=== PATIENT | female | born 1990 | race Caucasian/White ===

== ENCOUNTER 2025-02-25 13:36 | Inpatient (IN) | payer SELFPAY ==
--- NOTE | 2025-02-25 13:47 | ED.C_ITS ---
HPI - Psych 2 General: Chief Complaint: Psychiatric Symptoms Stated Complaint: sent from [facility] Time Seen by Provider: 02/25/25 13:46 History of Present Illness: 34-year-old female with a history of dep ression who is no longer on antidepressant medications who presents the emergency room from behavioral health clinic with complaints of suicidal thoughts. She says she feels like she is about to have a mental breakdown. She said she was on her way to work and had a dissociation episode and started crying and felt suicidal. She said she had a suicidal attempt when she was 18 years old. She says she stopped taking depression meds 3 years ago because they made her anxiety worse. No specific plan today. Related Data Home Medications ?Medication ?Instructions ?Recorded ?Confirmed ibuprofen 200 mg tablet (Advil) 800 mg PO Q6H PRN Feve r Or Pain 02/25/25 02/25/25 Allergies Allergy/AdvReac Type Severity Reaction Status Date / Time No Known Allergies Allergy Verified 02/25/25 13:56 Review of Systems 2 Narrative: Constitutional symptoms: Negative except as documented in HPI. Skin symptoms: Negative except as documented in HPI. Eye symptoms: Negative except as documented in HPI. ENMT symptoms: Negative except as documented in HPI. Respiratory symptoms: Negative except as documented in HPI. Cardiovascular symptoms: Negative except as documented in HPI. Gastrointestinal symptoms: Negative except as documented in HPI. Genitourinary symptoms: Negative except as documented in HPI. Musculoskeletal symptoms: Negative except as documented in HPI. Neurologic symptoms: Negative except as documented in HPI. Psychiatric symptoms: Negative except as documented in HPI. Endocrine symptoms: Negative except as documented in HPI. Physical Exam 2 Narrative: EXAM NARRATIVE: General: Alert, no acute distress. Skin: Warm, dry. Head: Normocephalic, atraumatic. Neck: Supple, trachea midline. Eye: Extraocular movements are intact. Ears, nose, mouth and throat: mucosa moist. Cardiovascular: Regular, Normal peripheral perfusion. Respiratory: Lungs are clear to auscultation, respirations are non-labored, breath sounds are equal, Symmetrical chest wall expansion. Gastrointestinal: Soft, Nontender, Non distended Musculoskeletal: Normal ROM, no deformity. Neurological: Alert and oriented, No focal neurological deficit observed. Psychiatric: Cooperative, depressed affect, endorses suicidal thoughts. Course 2 Vital Signs: Vital signs: Vital Signs Pulse Rate 70 02/25/25 13:51 Respiratory Rate 18 02/25/25 13:51 Blood Pressure 109/75 02/25/25 13:51 Pulse Oximetry 98 02/25/25 13:51 Oxygen Delivery Me thod Room Air 02/25/25 13:51 MDM - Psych Medical Decision Making Differential diagnosis: Patient with reported depression and suicidal ideation. concerns for infection, alcohol intoxication, cardiac issues or other medical problems prior to psychiatric admission. Workup: labwork, ekg ordered to evaluate the pathologies and to clear the patient medically prior to psychiatric admission Lab Review: Laboratory results were reviewed and interpreted by myself the emergency room physician. - Medically cleared. - EKG shows no ischemic changes. - Blood alcohol level is negative, -urinalysis and drug screen pending at admission - No signs of infection, urinalysis clear and white count is not elevated - No anemia. - BUN and creatinine are within normal limits. Consultation: I spoke with Dr. Garvin who is on-call for the psychiatry service and agrees to admission. Assessment and plan: Suicidal thoughts Depression -Admission to neuropsychiatric unit for continued evaluation and treatment. - All lab work was reviewed and interpreted personally by myself, the ER physician - Evaluation and treatment of this problem were appropriate in the emergency setting Lab Data 02/25/25 13:58 02/25/25 13:58 Laboratory Results WBC 12.89 10^3/uL (3.29-11.43) H 02/25/25 13:58 RBC 4.19 10^6/uL (3.85-5.65) 02/25/25 13:58 Hgb 12.90 g/dL (11.27-16.99) 02/25/25 13:58 Hct 39.0 % (36-47) 02/25/25 13:58 MCV 93.1 fl (85-98) 02/25/25 13:58 MCH 30.8 pg (27-33) 02/25/25 13:58 MCHC 33.1 g/dL (30-55) 02/25/25 13:58 RDW 12.9 % (12.1-15.1) 02/25/25 13:58 Plt Count 355 10^3/cmm (157-399) 02/25/25 13:58 MPV 10.1 fL (7.4-10.4) 02/25/25 13:58 Neut % (Auto) 62.1 % 02/25/25 13:58 Lymph % (Auto) 30.3 % 02/25/25 13:58 Dyer % (Auto) 4.0 % 02/25/25 13:58 Eos % (Auto) 2.8 % 02/25/25 13:58 Baso % (Auto) 0.6 % 02/25/25 13:58 Neut # (Auto) 7.99 10^3/uL (1.8-7.7) H 02/25/25 13:58 Lymph # (Auto) 3.9 10^3/uL (0.8-4.8) 02/25/25 13:58 Dyer # (Auto) 0.5 10^3/uL (0.2-0.9) 02/25/25 13:58 Eos # (Auto) 0.4 10^3/uL (0.0-0.8) 02/25/25 13:58 Baso # (Auto) 0.1 10^3/uL (0.0-0.1) 02/25/25 13:58 Nucleated RBC % (auto) 0 % 02/25/25 13:58 Nucleated RBCs # 0.0 /100WBC 02/25/25 13:58 Sodium 139 mmol/L (136-145) 02/25/25 13:58 Potassium 3.9 mmol/L (3.5-5.1) 02/25/25 13:58 Chloride 104 mmol/L (98-107) 02/25/25 13:58 Carbon Dioxide 22 mmol/L (22-29) 02/25/25 13:58 Anion Gap 16.9 (5-19) 02/25/25 13:58 BUN 7 mg/dL (6-20) 02/25/25 13:58 Creatinine 0.6 mg/dL (0.5-0.9) 02/25/25 13:58 GFR Calculation 115.9 mL/min (90-130) 02/25/25 13:58 Glucose 97 mg/dL (65-115) 02/25/25 13:58 Calculated Osmolality 286 mOsm/kg (285-295) 02/25/25 13:58 Calcium 9.0 mg/dL (8.5-10.5) 02/25/25 13:58 Total Bilirubin 0.2 mg/dL (0.15-1.2) 02/25/25 13:58 AST 10 U/L (0-32) 02/25/25 13:58 ALT 9 U/L (0-33) 02/25/25 13:58 Alkaline Phosphatase 83 U/L (35-105) 02/25/25 13:58 Total Protein 7.1 g/dL (6.6-8.7) 02/25/25 13:58 Albumin 4.3 g/dL (3.5-5.2) 02/25/25 13:58 Globulin 2.8 g/dL (1.3-4.6) 02/25/25 13:58 TSH 1.67 uIU/mL (0.27-4.20) 02/25/25 13:58 HCG, Qual Negative (Negative) 02/25/25 13:58 Salicylates < 0.3 mg/dL (3-10) L 02/25/25 13:58 Acetaminophen < 5.0 ug/mL (10-30) L 02/25/25 13:58 Ethyl Alcohol < 10 mg/dL (0-10) 02/25/25 13:58 No radiology studies performed this visit Discharge Plan Discharge Patient Disposition: Admitted As Inpatient Admit Provider: Martin Garvin Clinical Impression: Suicidal ideation, Depression Condition: Stable Coding Level of Care Code ED Napping Machine Operator for Jada Treadwell
[2025-02-25 13:51] VITALS: BP 109/75; PULSE 70; RESP 18; O2SAT 98
[2025-02-25 14:05] LABS: Hematocrit 39.0 % (36-47); Hemoglobin 12.90 g/dL (11.27-16.99); Mean Corpuscular HGB Conc 33.1 g/dL (30-55); Mean Corpuscular Hemoglobin 30.8 pg (27-33); Mean Corpuscular Volume 93.1 fl (85-98); Nucleated Red Blood Cells % 0 %; Platelet Count 355 10^3/cmm (157-399); Red Blood Count 4.19 10^6/uL (3.85-5.65); White Blood Count 12.89 10^3/uL (3.29-11.43)
[2025-02-25 14:14] LABS: HCG Qualitative Urine. Negative (Negative)
--- NOTE | 2025-02-25 14:15 | PC.NURSE ---
Involuntary 96 hour hold rights read and reviewed with patient. Patient verbalized understandings and copy of rights given to patient.
[2025-02-25 14:32] LABS: Alanine Aminotransferase 9 U/L (0-33); Albumin Level 4.3 g/dL (3.5-5.2); Alkaline Phosphatase 83 U/L (35-105); Anion Gap 16.9 (5-19); Aspartate Amino Transferase 10 U/L (0-32); Blood Urea Nitrogen 7 mg/dL (6-20); Calcium 9.0 mg/dL (8.5-10.5); Carbon Dioxide 22 mmol/L (22-29); Chloride 104 mmol/L (98-107); Globulin 2.8 g/dL (1.3-4.6); Glucose 97 mg/dL (65-115); Osmolality Calculated 286 mOsm/kg (285-295); Potassium 3.9 mmol/L (3.5-5.1); Sodium 139 mmol/L (136-145); Thyroid Stimulating Hormone 1.67 uIU/mL (0.27-4.20); Total Protein 7.1 g/dL (6.6-8.7)
[2025-02-25 14:34] LABS: Acetaminophen < 5.0 ug/mL (10-30); Alcohol Level < 10 mg/dL (0-10); Salicylate < 0.3 mg/dL (3-10)
[2025-02-25 15:49] VITALS: BP 112/78; PULSE 67; RESP 16; TEMP 36.9; O2SAT 98
--- NOTE | 2025-02-25 16:34 | PC.NURSE ---
Pt. came into ER was placed on a 96 hr hold. Told ER that she had a mental breakdown while driving on the way to work. Pt. states she has nightmares about killing herself, says she would not hurt herself, but if a car was heading her way she would not get out of the way. Pt. says she attempted suicide at age 17 by trying to drink herself to . Pt. has multiple cyst one under her right armpit, several on her left buttock and lower left thigh, right buttock. Pt. 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 Pt. is and has 3 kids. The kids are with her . One child she had at age 18. Pt. says she has only lived her in [place] for 2 years.
[2025-02-25 16:41] LABS: Glucose Urine UA Negative (Normal); Nitrate Urine Negative (Negative); Specific Gravity, Urine 1.009 (1.005-1.030)
[2025-02-25 16:55] LABS: PCP Screen Urine Negative (Negative)
[2025-02-25 17:47] LABS: Add Urine Microscopic? YES
[2025-02-25 19:52] VITALS: BP 103/50; PULSE 61; RESP 16; TEMP 36.8; O2SAT 99
[2025-02-26 06:00] VITALS: BP 94/61; PULSE 81; RESP 16; TEMP 36.9; O2SAT 96
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
[2025-02-26 14:00] VITALS: BP 101/48; PULSE 78; RESP 16; TEMP 37.2; O2SAT 99
--- NOTE | 2025-02-26 16:42 | PC.NURSE ---
This nurse and EXECUTIVE VICE PRESIDENT [employer]ELOPMENT covered open MRSA sores with bandaids. Cleaned the areas and dried well then bandaged.
[2025-02-26 20:36] VITALS: BP 100/53; PULSE 58; RESP 18; TEMP 36.7; O2SAT 99
[2025-02-27 06:00] VITALS: BP 93/58; PULSE 63; RESP 16; TEMP 36.7; O2SAT 97
--- NOTE | 2025-02-27 11:27 | PC.NURSE ---
I was contacted by Manuel Arias RN with concerns, stating that when Dr. Bruno rounded on patient, he was suspicious of her wounds containing MRSA and ordered antibiotics. I called and spoke with him and explained that with our community setting in [place], if patient is infectious, she will need to be transferred to a medical floor. He verbalizes understanding and provided a verbal order for wound culture and gram stain, which I placed per policy. I informed Karo of this and we will attempt to contain patient as best as possible until the initial results are reported. Dr. Garvin was made aware as well.
[2025-02-27 13:21] VITALS: BP 104/68; PULSE 65; RESP 16; TEMP 36.9; O2SAT 99
--- NOTE | 2025-02-27 13:45 | PM.CONSULT ---
Providers/Reason For Consult Consulting Physician/Specialty*: Justin Bruno MD hospitalist Reason for Consult*: Recurrent skin boils history of MRSA Requesting Physician: Martin Garvin MD Attending Physician: Martin Garvin MD History of Present Illness History of Present Illness Leigh Rios is a 34 year old female has had recurrent skin boils since age 10-11 and was told she is a MRSA carrier. She has had specialist told her to use bleach baths but she states she is allergic to bleach so cannot do that. She has been on 6-month antibiotics in the past including doxycycline and potentially others but cannot recall them. Patient is admitted to the Neuropsych Unit for severe depression and feeling like she does not need to live anymore. She has not had an active suicidal plan. She states she is being helped here on the admission. 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 And is not involved in sports Patient smokes a cigarette a week. She does vape 1 canister a week she does not use alcohol or any other drugs. Review of Systems Narrative: General No fevers chills she reports multiple skin lesions that have healed and drained she currently has them in the right axilla around the buttocks and also at the upper butt crack Medications/Allergies Home Medications ?Medication ?Instructions ?Recorded ?Confirmed ?Last Taken ?Type ibuprofen 200 mg tablet (Advil) 800 mg PO Q6H PRN Fever Or Pain 02/25/25 02/25/25 02/21/25 History Allergies Allergy/AdvReac Type Severity Reaction Status Date / Time No Known Allergies Allergy Verified 02/25/25 13:56 Current Medications Generic Name Dose Route Start Last Admin Trade Name Freq PRN Reason Stop Dose Admin Acetaminophen 650 mg 02/25/25 15:48 02/26/25 10:04 Acetaminophen 325 Mg Tablet PO 650 mg Q4H PRN Administration MILD PAIN Fluoxetine HCl 20 mg 02/26/25 17:55 02/27/25 08:04 Fluoxetine 20 Mg Capsule PO 20 mg DAILY CHIN Administration Ibuprofen 600 mg 02/25/25 15:48 02/26/25 20:34 Ibuprofen 600 Mg Tablet PO 600 mg Q6H PRN Administration MODERATE PAIN Nicotine Polacrilex 2 mg 02/25/25 15:48 02/27/25 11:20 Nicotine 2 Mg Gum BUCCAL 2 mg Q2H PRN Administration NICOTINE WITHDRAWAL PFSH Acute PFSH: Medical History (Updated 02/27/25 @ 14:06 by Justin Bruno MD) Furuncle of buttock MRSA carrier Vitals/I&O/Wt Last Vital Signs Temp 98.5 F 02/27/25 13:21 Pulse 65 02/27/25 13:21 Resp 16 02/27/25 13:21 BP 104/68 02/27/25 13:21 Pulse Ox 99 02/27/25 13:21 O2 Del Method Room Air 02/27/25 13:21 Weight last 48 hrs Weight 89.811 kg Physical Exam Narrative: Patient was examined with the staff member Emiliana present CV regular rate and rhythm Lungs clear Right axilla there is a 2-1/2 cm erythematous indurated deep furuncle mildly to moderately tender not draining Right and left inner buttock with some boils 1 of those is draining. She has a lesion at the right upper butt crack. Additionally there is scarring from multiple healed lesions Data 02/25/25 13:58 02/25/25 13:58 A&P Assessment and plan 1. Furuncle of buttock: Continue with wound care we will put the patient on Bactrim DS 1 p.o. twice daily for 14 days renal function is normal with creatinine 0.6 Obtain wound culture 2. MRSA carrier: Obtain MRSA nasal swab. 3. Furuncle of axilla: PDMP PDMP Reviewed: Not Reviewed Coding Level of Care Code 64563 Diagnoses Furuncle of buttock L02.32 MRSA carrier Z22.322 Furuncle of axilla L02.429 Time Spent (min) 45
[2025-02-27] MEDS: sulfamethoxazole-trimeth DS 160-800 mg Tablet 1 TAB PO (17:22)
--- NOTE | 2025-02-27 17:39 | P.NPUPN_ITS ---
Subjective NPU 2 Subjective: Patient presents today reporting that things are going okay. She appreciates the fact that her medical comorbidities are being addressed. We discussed a plan to transfer her to the [facility] after discussion of the risks, benefits and alternatives she understood and agreed to proceed as is documented in this note. We discussed the fact that we would likely not have her return if she continues to show improvement from a psychiatric standpoint and her plan for weaning will be based on the need to treat these infections and/or boils. She denied any side effects to the new medication. Mental Status Exam 2 MSE Comments: This is an overweight white female in hospital scrubs with adequate grooming and limited eye contact. Multiple tattoos on her exposed skin of her forearms. No abnormal movements except for mild psychomotor retardation. Cooperative with exam and mild to moderate distress. Speech was slightly decreased rate and volume. Mood described as depressed and anxious, affect congruent. Thought process organized. Thought content: Patient denied active suicidal or homicidal ideation, there were no delusions reported or noted, she denied any auditory or visual hallucinations. Reports severe anxiety characterized by constant worrying and social anxiety that began in high school. Describes feeling depressed and overwhelmed, with a history of depression since childhood. Experiences difficulty achieving deep sleep, waking up after about 5 hours and staying awake for several hours. Describes a mix of overeating and undereating during depressive episodes. Reports having trouble remembering things and disassociation at times. Current mood is described as tired. Denies current suicidal thoughts, thoughts of hurting or killing others, visual hallucinations, and delusions. Attention and concentration are intact and memory was mostly reliable but no more formally tested. She is alert and oriented x 3. Insight insight is fair, judgment is limited and impulse control is poor. Vitals/I&O/Wt Last Vital Signs Temp 98.5 F 02/27/25 13:21 Pulse 65 02/27/25 13:21 Resp 16 02/27/25 13:21 BP 104/68 02/27/25 13:21 Pulse Ox 99 02/27/25 13:21 O2 Del Method Room Air 02/27/25 13:21 Data NPU 02/25/25 13:58 02/25/25 13:58 A&P Assessment and plan 1. Suicidal ideation: 2. Major depressive disorder, recurrent: 3. PEDRO (generalized anxiety disorder): 4. PTSD (post-traumatic stress disorder): Plan: This is a 34-year-old white female with a long history of mental health issues with limited history of treatment though she has had some treatment in her childhood and some limited treatment 2 to 3 years ago but prior to moving to this area. She presented after having what she describes as a breakdown at her place of employment and they recommended she come here to be evaluated. UDS negative and blood alcohol unremarkable. She is unknown to psychiatric services at [facility] except for a crisis contact. Depression and severe anxiety, as previously diagnosed and discussed. History of panic attacks, with noted exacerbation by Lexapro. Social anxiety, with significant distress in large group settings. Chronic fear of abandonment, with interpersonal difficulties suggestive of possible borderline personality disorder, to be further evaluated. ADHD considered as a differential diagnosis, pending further assessment. Plan Initiated treatment with Prozac, to be administered starting immediately and continued in the morning as per standard protocol. Recommended ongoing assessment and discussion regarding possible bipolar disorder, borderline personality disorder, and ADHD, with further evaluation planned for the next session. 1. Initiated Prozac 20 mg p.o. daily. Will consider something for anxiety specifically if necessary. 2. Encourage individual, group and milieu therapy. 3. Continue every 15 minute checks for safety. 4. Obtain collateral information. 5. Observe against the backdrop of the 96-hour hold. 6. Obtain hospitalist consult with concern for the boils/lesions that she routinely gets with some of them appearing possibly inflamed or infected. Concern for MRSA exists and we will transfer her to the [facility] unit with a plan to have her treated safely at their and continuing her medications and treatment from now here with the likelihood discharge sooner rather than later. PDMP PDMP Reviewed: Not Reviewed Involuntary Hold Information 2 Hold Status: Legal Status: 96 Hour Hold Date/Time Hold Expires: 1 @1400 Attestations NPU 2 Medical Necessity Statement*: Inpatient hospitalization is medically necessary and the clinically appropriate intervention at this time. We will monitor/initiate medications and make changes as indicated. Likely length of stay 2-4 days. Coding Level of Care Code Acute Code for Chg Fwd Diagnoses Suicidal ideation R45.851 Major depressive disorder, recurrent F33.9 PEDRO (generalized anxiety disorder) F41.1 PTSD (post-traumatic stress disorder) F43.10
[2025-02-27 18:31] LABS: MRSA PCR OZH (swab) MRSA Detected (Not Detecte)
[2025-02-27 19:33] VITALS: BP 98/66; PULSE 63; RESP 18; TEMP 37.5; O2SAT 99
[2025-02-28] VITALS: BP 90/54; PULSE 57; RESP 15; TEMP 36.7; O2SAT 96
[2025-02-28 04:00] VITALS: BP 100/65; PULSE 60; RESP 15; TEMP 36.8; O2SAT 92
[2025-02-28] MEDS: sulfamethoxazole-trimeth DS 160-800 mg Tablet 1 TAB PO ×2 (05:39→17:52)
[2025-02-28 07:27] VITALS: BP 90/55; PULSE 46; RESP 16; TEMP 36.7; O2SAT 98
[2025-02-28 10:59] VITALS: BP 90/60; PULSE 73; RESP 18; TEMP 36.7; O2SAT 98
[2025-02-28] MEDS: mupirocin oint 22 gm 1 APPLIC NOSTRIL-B ×2 (11:33→18:07)
--- NOTE | 2025-02-28 15:13 | P.PN_ITS ---
Subjective 2 Subjective: 34-year-old female with MRSA b oils with MRSA positive on the nares swab and put in isolation from [facility] Unit transferred to med floor yesterday wound grew only mixed ronald. Patient reports willingness to comply with decolonization for MRSA. Vitals/I&O/Wt Last Vital Signs Temp 98.0 F 02/28/25 10:59 Pulse 73 02/28/25 10:59 Resp 18 02/28/25 10:59 BP 90/60 02/28/25 10:59 Pulse Ox 98 02/28/25 10:59 O2 Del Method Room Air 02/28/25 10:59 02/28/25 02/28/25 02/28/25 06:59 14:59 22:59 Intake Total 960 / 960 Balance 960 / 960 Weight last 48 hrs Weight 81.363 kg Physical Exam 2 Narrative: Patient was examined with the [employer]LE[employer]MINISTRATOR CV regular rate and rhythm Lungs clear Right axilla there is a 2- cm erythematous indurated deep furuncle mildly to moderately tender not draining Buttock not examined Data 02/25/25 13:58 02/25/25 13:58 Micro: Microbiology 02/27/25 12:17 Gram Stain - Final Buttock Wound Culture - Preliminary A&P Assessment and plan 1. Furuncle of buttock: Continue with wound care we will put the patient on Bactrim DS 1 p.o. twice daily for 14 days renal function is normal with creatinine 0.6 Nasal MRSA screen positive but wound grew mixed ronald. Continue Bactrim as planned. Will start decolonization 2. MRSA carrier: Decolonization with chlorhexidine 15 cc swish and spit twice a day mupirocin to the nares twice a day and chlorhexidine wash once a day for 5 days a month 3. Furuncle of axilla: Minimally improved beader tender PDMP PDMP Reviewed: Not Reviewed Attestations 2 Medical Necessity Statement*: Patient neil hospitalized for psychiatric illness. I am going to write for Bactrim and decolonization regimen to be continued outpatient with anticipated discharge tomorrow or the next day per psychiatric service Coding Level of Care Code 71318 Diagnoses Furuncle of buttock L02.32 MRSA carrier Z22.322 Furuncle of axilla L02.429 Time Spent (min) 35
--- NOTE | 2025-02-28 15:14 | W.PM.NPUPNS ---
Subjective NPU Subjective: Patient presented today reporting that she is doing okay. She reports she is feeling better with the medication and is sleeping better with the trazodone. She was hopeful that she could get the trazodone as well to assist with her sleep after discharge. She is working with the primary medical team on this process of dealing with the MRSA and determining whether she should have a shorter or longer treatment course. She reports that they are going to do the 14-day treatment course at this time. We discussed that I would discuss the case with Dr. Bruno to determine if he is prepared and comfortable with her discharging on the oral antibiotics. She reports that she is considering not returning to work at the [employer] but we discussed giving her some time to manage her MRSA treatment and have some mental health time and then she will make a decision about if she returns there. She denied any side effects to the medication. Mental Status Exam MSE Comments: This is an overweight white female in hospital scrubs with adequate grooming and limited eye contact. Multiple tattoos on her exposed skin of her forearms. No abnormal movements except for mild psychomotor retardation. Cooperative with exam and mild to moderate distress. Speech was slightly decreased rate and volume. Mood described as depressed and anxious, affect congruent. Thought process organized. Thought content: Patient denied active suicidal or homicidal ideation, there were no delusions reported or noted, she denied any auditory or visual hallucinations. Reports severe anxiety characterized by constant worrying and social anxiety that began in high school. Describes feeling depressed and overwhelmed, with a history of depression since childhood. Experiences difficulty achieving deep sleep, waking up after about 5 hours and staying awake for several hours. Describes a mix of overeating and undereating during depressive episodes. Reports having trouble remembering things and disassociation at times. Current mood is described as tired. Denies current suicidal thoughts, thoughts of hurting or killing others, visual hallucinations, and delusions. Attention and concentration are intact and memory was mostly reliable but no more formally tested. She is alert and oriented x 3. Insight insight is fair, judgment is limited and impulse control is poor. Vitals/I&O/Wt Last Vital Signs Temp 98.0 F 02/28/25 10:59 Pulse 73 02/28/25 10:59 Resp 18 02/28/25 10:59 BP 90/60 02/28/25 10:59 Pulse Ox 98 02/28/25 10:59 O2 Del Method Room Air 02/28/25 10:59 02/28/25 02/28/25 02/28/25 06:59 14:59 22:59 Intake Total 960 / 960 Balance 960 / 960 Weight last 48 hrs Weight 81.363 kg Data NPU 02/25/25 13:58 02/25/25 13:58 Micro: Microbiology 02/27/25 12:17 Gram Stain - Final Buttock Wound Culture - Preliminary Microbiology 02/27/25 12:17 Buttock Gram Stain - Final 02/27/25 12:17 Buttock Wound Culture - Preliminary A&P Assessment and plan 1. Suicidal ideation: 2. Major depressive disorder, recurrent: 3. PEDRO (generalized anxiety disorder): 4. PTSD (post-traumatic stress disorder): Plan: This is a 34-year-old white female with a long history of mental health issues with limited history of treatment though she has had some treatment in her childhood and some limited treatment 2 to 3 years ago but prior to moving to this area. She presented after having what she describes as a breakdown at her place of employment and they recommended she come here to be evaluated. UDS negative and blood alcohol unremarkable. She is unknown to psychiatric services at [facility] except for a crisis contact. Depression and severe anxiety, as previously diagnosed and discussed. History of panic attacks, with noted exacerbation by Lexapro. Social anxiety, with significant distress in large group settings. Chronic fear of abandonment, with interpersonal difficulties suggestive of possible borderline personality disorder, to be further evaluated. ADHD considered as a differential diagnosis, pending further assessment. Plan Initiated treatment with Prozac, to be administered starting immediately and continued in the morning as per standard protocol. Recommended ongoing assessment and discussion regarding possible bipolar disorder, borderline personality disorder, and ADHD, with further evaluation planned for the next session. 1. Initiated Prozac 20 mg p.o. daily. Will consider something for anxiety specifically if necessary. 2. Encourage individual, group and milieu therapy. 3. Continue every 15 minute checks for safety. 4. Obtain collateral information. 5. Observe against the backdrop of the 96-hour hold. 6. Obtain hospitalist consult with concern for the boils/lesions that she routinely gets with some of them appearing possibly inflamed or infected. Concern for MRSA exists and we will transfer her to the [facility] unit with a plan to have her treated safely at their and continuing her medications and treatment from now here with the likelihood discharge sooner rather than later. PDMP PDMP Reviewed: Not Reviewed Involuntary Hold Information Hold Status: Legal Status: 96 Hour Hold Date/Time Hold Expires: 03/01/25@1400 Attestations NPU Medical Necessity Statement*: Inpatient hospitalization is medically necessary and the clinically appropriate intervention at this time. We will monitor/initiate medications and make changes as indicated. Likely length of stay 2-4 days. Coding Level of Care Code Acute Code for Chg Fwd Diagnoses Suicidal ideation R45.851 Major depressive disorder, recurrent F33.9 PEDRO (generalized anxiety disorder) F41.1 PTSD (post-traumatic stress disorder) F43.10
[2025-02-28 15:15] VITALS: BP 96/54; PULSE 59; RESP 16; TEMP 37; O2SAT 96
[2025-02-28] MEDS: chlorhexidine gluconate 0.12% Btl 473 mL 15 ML MUCOUS MEM (17:52)
[2025-02-28 20:00] VITALS: BP 99/59; PULSE 63; RESP 179; TEMP 36.8; O2SAT 95
[2025-03-01] VITALS: BP 97/59; PULSE 57; RESP 17; TEMP 36.7
[2025-03-01 04:00] VITALS: BP 93/55; PULSE 58; RESP 17; TEMP 36.6; O2SAT 95
[2025-03-01] MEDS: chlorhexidine gluconate 0.12% Btl 473 mL 15 ML MUCOUS MEM (05:05)
[2025-03-01] MEDS: sulfamethoxazole-trimeth DS 160-800 mg Tablet 1 TAB PO (05:05)
[2025-03-01] MEDS: mupirocin oint 22 gm 1 APPLIC NOSTRIL-B (05:05)
[2025-03-01] MEDS: chlorhexidine gluconate 4% Btl 118 mL 1 APPLIC TOPICAL (05:07)
[2025-03-01 07:20] VITALS: BP 96/64; PULSE 58; TEMP 36.7; O2SAT 97
[2025-03-01 11:24] VITALS: BP 100/67; PULSE 63; RESP 17; O2SAT 92
--- NOTE | 2025-03-01 12:40 | P.NPUDS_ITS ---
Diagnoses at Discharge Discharge Diagnosis 1. Suicidal ideation: 2. Major depressive disorder, recurrent: 3. PEDRO (generalized anxiety disorder): 4. PTSD (post-traumatic stress disorder): Reason for Visit Reason for Visit: sent from [facility] Involuntary Hold Information Hold Status: Legal Status: 96 Hour Hold Date/Time Hold Expires: 03/01/25@1400 Mental Status Exam MSE Comments: This is an overweight white female in hospital scrubs with adequate grooming and limited eye contact. Multiple tattoos on her exposed skin of her forearms. No abnormal movements except for mild psychomotor retardation. Cooperative with exam and mild to moderate distress. Speech was slightly decreased rate and volume. Mood described as depressed and anxious, affect congruent. Thought process organized. Thought content: Patient denied active suicidal or homicidal ideation, there were no delusions reported or noted, she denied any auditory or visual hallucinations. Reports severe anxiety characterized by constant worrying and social anxiety that began in high school. Describes feeling depressed and overwhelmed, with a history of depression since childhood. Experiences difficulty achieving deep sleep, waking up after about 5 hours and staying awake for several hours. Describes a mix of overeating and undereating during depressive episodes. Reports having trouble remembering things and disassociation at times. Current mood is described as tired. Denies current avendaño icidal thoughts, thoughts of hurting or killing others, visual hallucinations, and delusions. Attention and concentration are intact and memory was mostly reliable but no more formally tested. She is alert and oriented x 3. Insight insight is fair, judgment is limited and impulse control is poor. Discharge Data Studies Completed and Pending: Pending at discharge Category Date Time Status Wound Culture and Gram Stain Stat Lab 02/27/25 12:17 Results Laboratory Results WBC 12.89 10^3/uL (3. 29-11.43) H 02/25/25 13:58 RBC 4.19 10^6/uL (3.8 5-5.65) 02/25/25 13:58 Hgb 12.90 g/dL (11.27 -16.99) 02/25/25 13:58 Hct 39.0 % (36-47) 02/25/25 13:58 MCV 93.1 fl (85-98) 02/25/25 13:58 MCH 30.8 pg (27-33) 02/25/25 13:58 MCHC 33.1 g/dL (30-55) 02/25/25 13:58 RDW 12.9 % (12.1-15.1 ) 02/25/25 13:58 Plt Count 355 10^3/cmm (157 -399) 02/25/25 13:58 MPV 10.1 fL (7.4-10.4 ) 02/25/25 13:58 Neut % (Auto) 62.1 % 02/25/25 13:58 Lymph % (Auto) 30.3 % 02/25/25 13:58 Vance % (Auto) 4.0 % 02/25/25 13:58 Eos % (Auto) 2.8 % 02/25/25 13:58 Baso % (Auto) 0.6 % 02/25/25 13:58 Neut # (Auto) 7.99 10^3/uL (1.8 -7.7) H 02/25/25 13:58 Lymph # (Auto) 3.9 10^3/uL (0.8- 4.8) 02/25/25 13:58 Vance # (Auto) 0.5 10^3/uL (0.2- 0.9) 02/25/25 13:58 Eos # (Auto) 0.4 10^3/uL (0.0- 0.8) 02/25/25 13:58 Baso # (Auto) 0.1 10^3/uL (0.0- 0.1) 02/25/25 13:58 Nucleated RBC % (a uto) 0 % 02/25/25 13:58 Nucleated RBCs # 0.0 /100WBC 02/25/25 13:58 Sodium 139 mmol/L (136-1 45) 02/25/25 13:58 Potassium 3.9 mmol/L (3.5-5 .1) 02/25/25 13:58 Chloride 104 mmol/L (98-10 7) 02/25/25 13:58 Carbon Dioxide 22 mmol/L (22-29) 02/25/25 13:58 Anion Gap 16.9 (5-19) 02/25/25 13:58 BUN 7 mg/dL (6-20) 02/25/25 13:58 Creatinine 0.6 mg/dL (0.5-0. 9) 02/25/25 13:58 GFR Calculation 115.9 mL/min (90- 130) 02/25/25 13:58 Glucose 97 mg/dL (65-115) 02/25/25 13:58 Calculated Osmolal ity 286 mOsm/kg (285- 295) 02/25/25 13:58 Calcium 9.0 mg/dL (8.5-10 .5) 02/25/25 13:58 Total Bilirubin 0.2 mg/dL (0.15-1 .2) 02/25/25 13:58 AST 10 U/L (0-32) 02/25/25 13:58 ALT 9 U/L (0-33) 02/25/25 13:58 Alkaline Phosphata se 83 U/L (35-105) 02/25/25 13:58 Total Protein 7.1 g/dL (6.6-8.7 ) 02/25/25 13:58 Albumin 4.3 g/dL (3.5-5.2 ) 02/25/25 13:58 Globulin 2.8 g/dL (1.3-4.6 ) 02/25/25 13:58 TSH 1.67 uIU/mL (0.27 -4.20) 02/25/25 13:58 HCG, Qual Negative (Negati ve) 02/25/25 13:58 Urine Color Yellow (Yellow) 02/25/25 13:58 Urine Appearance Clear (CLEAR) 02/25/25 13:58 Urine pH 6.0 (5-7) 02/25/25 13:58 Ur Specific Gravit y 1.009 (1.005-1.0 30) 02/25/25 13:58 Urine Protein Negative (Negati ve) 02/25/25 13:58 Urine Glucose (UA) Negative (Normal ) 02/25/25 13:58 Urine Ketones Negative (Negati ve) 02/25/25 13:58 Urine Blood Negative (Negati ve) 02/25/25 13:58 Urine Nitrate Negative (Negati ve) 02/25/25 13:58 Urine Bilirubin Negative (Negati ve) 02/25/25 13:58 Urine Urobilinogen 0.2 mg/dL (Negati ve) 02/25/25 13:58 Ur Leukocyte Millicent ase 1+ (Negative) A 02/25/25 13:58 Urine RBC 0-4 /hpf (0-2) H 02/25/25 13:58 Urine WBC 0-4 /hpf (0-5) H 02/25/25 13:58 Ur Squamous Epith Cells 5-10 /hpf (0-5) H 02/25/25 13:58 Amorphous Sediment Not Reportable 02/25/25 13:58 Urine Bacteria None /hpf (NONE) 02/25/25 13:58 Urine Mucus None /hpf 02/25/25 13:58 Nasal MRSA (PCR) Mrsa detected (N ot Detecte) A 02/27/25 14:54 Salicylates < 0.3 mg/dL (3-10 ) L 02/25/25 13:58 Urine Opiates Scre en Negative ng/mL (N egative) 02/25/25 13:58 Acetaminophen < 5.0 ug/mL (10-3 0) L 02/25/25 13:58 Ur Barbiturates Sc reen Negative ng/mL (N egative) 02/25/25 13:58 Ur Phencyclidine S crn Negative ng/mL (N egative) 02/25/25 13:58 Ur Amphetamines Sc reen Negative ng/mL (N egative) 02/25/25 13:58 U Benzodiazepines Scrn Negative ng/mL (N egative) 02/25/25 13:58 Urine Cocaine Scre en Negative ng/mL (N egative) 02/25/25 13:58 U Marijuana (THC) Screen Negative ng/mL (N egative) 02/25/25 13:58 Ethyl Alcohol < 10 mg/dL (0-10) 02/25/25 13:58 Vitals: Last Vital Signs Temp 98.1 F 03/01/25 07:20 Pulse 63 03/01/25 11:24 Resp 17 03/01/25 11:24 BP 100/67 03/01/25 11:24 Pulse Ox 92 03/01/25 11:24 O2 Del Method Room Air 03/01/25 11:24 Discharge Plan Discharge Patient Disposition: Home Condition: Stable Prescriptions: New trazodone 50 mg Tablet 50 mg PO BEDTIME PRN (Reason: Sleep) 30 Days Qty: 30 1RF fluoxetine 20 mg Capsule 20 mg PO DAILY 30 Days Qty: 30 1RF chlorhexidine gluconate 4 % liquid 1 applic topical DAILY 5 Days Qty: 473 3RF chlorhexidine gluconate 0.12 % mouthwash 15 ml buccal BID Qty: 300 1RF sulfamethoxazole-trimethoprim [Bactrim DS] 800-160 mg tablet 1 tab PO BID 10 Days Qty: 20 0RF Continued ibuprofen [Advil] 200 mg Tablet 800 mg PO Q6H PRN (Reason: Fever Or Pain) Discharge Order = DC NOW: Discharge Order (Routine); Ordered 03/01/25 Ordered By: Martin Garvin Discharge Diet: Regular Discharge Activity: Resume usual activity Patient Instructions: Opioid Safety, Patient Portal & Jud Instructions Discharge Attestations NPU Time Spent in Discharge Care*: less than 30 min Specific Discharge Activities: Specific discharge activities: educating patient, discussing with pcp/other providers, discussing with hospice case manager/social workers/dc planners, documenting/other paperwork and evaluating patient/reviewing data Coding Level of Care Code Acute Code for Chg Fwd Diagnoses Suicidal ideation R45.851 Major depressive disorder, recurrent F33.9 PEDRO (generalized anxiety disorder) F41.1 PTSD (post-traumatic stress disorder) F43.10
[2025-03-01 13:27] VITALS: BP 100/67; PULSE 63; O2SAT 97
== END 2025-03-01 13:31 | disposition home or self-care (01) | DRG 885 ==
LOC: ER 14:24 → NP 14:33 → MEDSURG 02-27 20:51
PROVIDERS: Internal Medicine; Admitting Provider Psychiatry & Neurology Psychiatry; Emergency Provider Emergency Medicine; Visit Provider Psychiatry & Neurology Psychiatry
DX: F33.9 Major depressive disorder, recurrent, unspecified (principal); R45.851 Suicidal ideations; F41.1 Generalized anxiety disorder; F43.10 Post-traumatic stress disorder, unspecified; F17.210 Nicotine dependence, cigarettes, uncomplicated; F17.290 Nicotine dependence, other tobacco product, uncomplicated; L02.32 Furuncle of buttock; L02.421 Furuncle of right axilla; Z22.322 Carrier or suspected carrier of Methicillin resistant Staphylococcus aureus; Z91.128 Patient's intentional underdosing of medication regimen for other reason; Z86.14 Personal history of Methicillin resistant Staphylococcus aureus infection
CPT/HCPCS: 36415; 80053; 80306; 80307; 81001; 81025; 84443; 85025; 87070; 87075; 87205; 97150; 97165; 99285; J9999; Q0162